=== PATIENT | male | born 1935 | race Hispanic/Latino ===

== ENCOUNTER 2018-01-12 11:15 | Inpatient (IN) | payer OTHER ==
[~2018-01-12] VITALS: Ht 167.6 cm; Wt 82.6 kg
[2018-01-12] MEDS ORDERED: ASPIRIN 325 MG TABLET ONE (11:48)
[2018-01-12 12:04] LABS: BASOPHILS % (AUTO) 0.4 % (0.0-5.0); EOSINOPHILS % (AUTO) 2.6 % (0.0-8.0); LYMPHOCYTES % (AUTO) 14.5 % (21.0-51.0); MEAN CORPUSCULAR HEMOGLOBIN 27.1 pg (27.0-33.0); MEAN CORPUSCULAR HGB CONC 32.9 g/dL (32.0-36.0); MEAN CORPUSCULAR VOLUME 82.3 fL (79-99); MONOCYTES % (AUTO) 7.6 % (3.0-13.0); NEUTROPHILS % (AUTO) 74.9 % (40.0-77.0); PLATELET COUNT (AUTO) 457 K/uL (130-400); RED BLOOD CELL COUNT(AUTO) 4.25 MIL/uL (4.50-6.20); RED CELL DISTRIBUTION WIDTH 14.6 % (11.0-15.5)
[2018-01-12 12:14] LABS: CREATININE 1.5 mg/dL (0.5-1.5); POTASSIUM 4.3 mmol/L (3.5-5.1)
[2018-01-12 12:20] LABS: ALBUMIN 2.6 g/dL (3.5-5.0); BILIRUBIN,TOTAL 0.5 mg/dL (0.2-1.0); TOTAL PROTEIN, SERUM 7.6 g/dL (6.0-8.3)
[2018-01-12 12:22] LABS: INR 0.99 (0.85-1.15); PARTIAL THROMBOPLASTIN TIME 27.5 SEC (26.3-35.5); PROTHROMBIN TIME 10.4 SEC (9.6-11.6)
[2018-01-12 12:38] LABS: B-TYPE NATRIURETIC PEPTIDE 55 pg/mL (0-100)
[2018-01-12 14:46] LABS: ABG BASE EXCESS -1.2 mmol/L (-2.0-3.0); ABG HCO3 22.4 mmol/L (21.0-28.0); ABG OXYGEN SATURATION 93.7 % (95.0-99.0); ABG PCO2 35 mmHg (35-48)
[2018-01-12] MEDS ORDERED: LIDOCAINE HCL 2% VISCOUS 15 ML UDCUP ONE (15:04)
[2018-01-12] MEDS ORDERED: MAG HYDROX/AL HYDROX/SIMETH ES 30 ML SUSP UDCUP ONE (15:05)
[2018-01-12 15:59] VITALS: BP 146/75
[2018-01-12 16:55] LABS: CREATINE KINASE MB 0.9 ng/mL (0.5-3.6); CREATINE KINASE, TOTAL 45 U/L (21-232); MYOGLOBIN 99 ng/mL (10-92); TROPONIN I < 0.04 ng/mL (0.00-0.06)
[2018-01-12] MEDS ORDERED: EZET10TA26 PO (18:40)
[2018-01-12] MEDS ORDERED: AEC81 PO (18:40)
[2018-01-12] MEDS ORDERED: HYDR12.54 PO (18:40)
[2018-01-12] MEDS ORDERED: SIMV40TA59 PO (18:40)
[2018-01-12] MEDS ORDERED: SAW450CA7 PO (18:40)
[2018-01-12] MEDS ORDERED: IRBE300T19 PO (18:40)
[2018-01-12] MEDS ORDERED: LABE200T5 PO (18:40)
[2018-01-12 19:38] VITALS: BP 182/97
[2018-01-12] MEDS ORDERED: COMPOUND PO MISCELLANEOUS 1 EACH MISC MISC PRN (20:00)
[2018-01-12] MEDS ORDERED: LIDOCAINE HCL 2% VISCOUS 60 ML, MAG HYDROX/AL HYDROX/SIMETH 60 ML, DICYCLOMINE HCL 40 MG PO PRN ×3 (20:00)
[2018-01-12 21:43] VITALS: BP 162/89
[2018-01-12 22:50] LABS: CREATINE KINASE MB 0.9 ng/mL (0.5-3.6); CREATINE KINASE, TOTAL 35 U/L (21-232); MYOGLOBIN 64 ng/mL (10-92); TROPONIN I < 0.04 ng/mL (0.00-0.06)
[2018-01-13] VITALS (7 sets, daily range): BP systolic 122–141; BP diastolic 62–76
[2018-01-13 05:24] LABS: CREATINE KINASE MB 0.6 ng/mL (0.5-3.6); CREATINE KINASE, TOTAL 31 U/L (21-232); MYOGLOBIN 67 ng/mL (10-92); TROPONIN I < 0.04 ng/mL (0.00-0.06)
[2018-01-13] MEDS: HYDROCHLOROTHIAZIDE 25 MG TABLET PO SCH (08:42)
[2018-01-13] MEDS: ASPIRIN 81 MG EC TAB PO SCH (08:43)
[2018-01-13] MEDS: LABETALOL HCL 200 MG TABLET PO SCH (08:43)
[2018-01-13] MEDS: SAW PALMETTO FRUIT 450 MG PO SCH (08:44)
[2018-01-13] MEDS: PANTOPRAZOLE SODIUM 40 MG TABLET.DR PO SCH (08:44)
[2018-01-13] MEDS: LOSARTAN 100 MG TABLET PO SCH (08:44)
[2018-01-13] MEDS: ACETAMINOPHEN 325 MG TAB PO PRN ×2 (12:55→21:00)
[2018-01-13] MEDS: EZETIMIBE 10 MG TAB PO SCH (20:59)
[2018-01-13] MEDS: ATORVASTATIN CALCIUM 20 MG TABLET PO SCH (20:59)
[2018-01-14 03:49] VITALS: BP 133/74
[2018-01-14 05:18] LABS: BASOPHILS % (AUTO) 0.3 % (0.0-5.0); EOSINOPHILS % (AUTO) 2.4 % (0.0-8.0); LYMPHOCYTES % (AUTO) 13.4 % (21.0-51.0); MEAN CORPUSCULAR HEMOGLOBIN 27.6 pg (27.0-33.0); MONOCYTES % (AUTO) 7.5 % (3.0-13.0); NEUTROPHILS % (AUTO) 76.4 % (40.0-77.0); PLATELET COUNT (AUTO) 477 K/uL (130-400); RED BLOOD CELL COUNT(AUTO) 4.19 MIL/uL (4.50-6.20); RED CELL DISTRIBUTION WIDTH 14.5 % (11.0-15.5); WHITE BLOOD COUNT (AUTO) 13.6 K/uL (4.8-10.8)
[2018-01-14 05:21] LABS: CREATININE 1.3 mg/dL (0.5-1.5); POTASSIUM 3.9 mmol/L (3.5-5.1)
[2018-01-14 07:00] VITALS: BP 146/70
[2018-01-14] MEDS: HYDROCHLOROTHIAZIDE 25 MG TABLET PO SCH (08:28)
[2018-01-14] MEDS: LABETALOL HCL 200 MG TABLET PO SCH (08:29)
[2018-01-14] MEDS: SAW PALMETTO FRUIT 450 MG PO SCH (08:33)
[2018-01-14] MEDS: PANTOPRAZOLE SODIUM 40 MG TABLET.DR PO SCH (08:33)
[2018-01-14] MEDS: ASPIRIN 81 MG EC TAB PO SCH (08:33)
[2018-01-14] MEDS: LOSARTAN 100 MG TABLET PO SCH (08:34)
[2018-01-14] MEDS: LEVOFLOXACIN 750 MG/D5W 150 ML 150 ML IV SCH (11:59)
[2018-01-14 12:00] VITALS: BP 97/53
[2018-01-14] MEDS ORDERED: PHARMACY COMMUNICATION MISC SCH (15:30)
[2018-01-14 16:12] VITALS: BP 106/65
[2018-01-14] MEDS ORDERED: VANCOMYCIN 1GM+NS 250ML 250 ML IV SCH (16:30)
[2018-01-14] MEDS: IPRATROPIUM/ALBUTEROL SULFATE 3 ML SOLUTION IH SCH ×2 (18:15→23:18)
[2018-01-14 19:30] VITALS: BP 149/77
[2018-01-14] MEDS: EZETIMIBE 10 MG TAB PO SCH (22:31)
[2018-01-14] MEDS: ZOSYN 3.375GM+NS 50ML 50 ML IV SCH (22:31)
[2018-01-14] MEDS: ATORVASTATIN CALCIUM 20 MG TABLET PO SCH (22:31)
[2018-01-14] MEDS: ACETAMINOPHEN 325 MG TAB PO PRN (22:35)
[2018-01-14 23:47] VITALS: BP 138/66
[2018-01-15] VITALS (22 sets, daily range): BP systolic 80–172; BP diastolic 46–87
[2018-01-15 06:10] LABS: MEAN CORPUSCULAR HGB CONC 33.2 g/dL (32.0-36.0); MEAN CORPUSCULAR VOLUME 81.2 fL (79-99); PLATELET COUNT (AUTO) 494 K/uL (130-400); RED BLOOD CELL COUNT(AUTO) 4.19 MIL/uL (4.50-6.20); RED CELL DISTRIBUTION WIDTH 14.2 % (11.0-15.5); WHITE BLOOD COUNT (AUTO) 14.4 K/uL (4.8-10.8)
[2018-01-15 06:20] LABS: PARTIAL THROMBOPLASTIN TIME 27.6 SEC (26.3-35.5); PROTHROMBIN TIME 10.5 SEC (9.6-11.6)
[2018-01-15 06:26] LABS: CREATININE 1.3 mg/dL (0.5-1.5); MAGNESIUM 1.7 mg/dL (1.80-2.40)
[2018-01-15] MEDS: IPRATROPIUM/ALBUTEROL SULFATE 3 ML SOLUTION IH SCH ×3 (06:31→18:11)
[2018-01-15] MEDS: SAW PALMETTO FRUIT 450 MG PO SCH (09:00)
[2018-01-15] MEDS: LOSARTAN 100 MG TABLET PO SCH (09:00)
[2018-01-15] MEDS: ASPIRIN 81 MG EC TAB PO SCH (09:00)
[2018-01-15] MEDS: LABETALOL HCL 200 MG TABLET PO SCH (09:00)
[2018-01-15] MEDS: PANTOPRAZOLE SODIUM 40 MG TABLET.DR PO SCH (09:00)
[2018-01-15] MEDS: ZOSYN 3.375GM+NS 50ML 50 ML IV SCH ×2 (09:06→21:07)
[2018-01-15] MEDS: VANCOMYCIN 500MG+NS 100ML 100 ML IV SCH ×2 (09:12→21:05)
[2018-01-15] MEDS ORDERED: MEPERIDINE-PF 50 MG/ML SYG ONE (12:19)
[2018-01-15] MEDS ORDERED: MIDAZOLAM HCL 1 MG/ML 2ML VIAL ONE (12:20)
[2018-01-15] MEDS ORDERED: LIDOCAINE HCL 2% 20ML ONE (12:27)
[2018-01-15] MEDS ORDERED: EPINEPHRINE 1 MG/ML AMPULE ONE (12:35)
[2018-01-15] MEDS ORDERED: MAGNESIUM 2GM PREMIX 50ML 50 ML IV SCH (13:45)
[2018-01-15] MEDS: ATORVASTATIN CALCIUM 20 MG TABLET PO SCH (21:05)
[2018-01-15] MEDS: EZETIMIBE 10 MG TAB PO SCH (21:05)
[2018-01-15] MEDS: ACETAMINOPHEN 325 MG TAB PO PRN (21:22)
[2018-01-16 00:35] VITALS: BP 119/60
[2018-01-16] MEDS: IPRATROPIUM/ALBUTEROL SULFATE 3 ML SOLUTION IH SCH ×4 (00:48→18:15)
[2018-01-16 03:51] LABS: SPECIMENTYPE,BODY FLUID LAVAGE
[2018-01-16 03:52] LABS: APPEARANCE BODY FLUID SLIGHTLY CLOUDY (CLEAR); COLOR,BODY FLUID COLORLESS (LT YELLOW); TOTAL VOLUME,BODY FLUID 30 mL
[2018-01-16 03:53] LABS: BODY FLUID RBC 10 /cu. mm.; BODY FLUID WBC 22 /cu. mm.
[2018-01-16 03:54] LABS: BF OTHER CELLS 98
[2018-01-16 04:17] VITALS: BP 138/73
[2018-01-16 05:04] LABS: HEMATOCRIT 32.4 % (42-54); MEAN CORPUSCULAR HEMOGLOBIN 27.7 pg (27.0-33.0); MEAN CORPUSCULAR HGB CONC 34.3 g/dL (32.0-36.0); MEAN CORPUSCULAR VOLUME 80.9 fL (79-99); PLATELET COUNT (AUTO) 470 K/uL (130-400); RED CELL DISTRIBUTION WIDTH 14.4 % (11.0-15.5); WHITE BLOOD COUNT (AUTO) 14.8 K/uL (4.8-10.8)
[2018-01-16 05:13] LABS: CREATININE 1.3 mg/dL (0.5-1.5); MAGNESIUM 1.8 mg/dL (1.80-2.40); POTASSIUM 3.8 mmol/L (3.5-5.1)
[2018-01-16 08:11] VITALS: BP 140/74
[2018-01-16] MEDS: ZOSYN 3.375GM+NS 50ML 50 ML IV SCH ×2 (09:50→21:16)
[2018-01-16] MEDS: VANCOMYCIN 500MG+NS 100ML 100 ML IV SCH ×2 (09:50→22:05)
[2018-01-16] MEDS: LOSARTAN 100 MG TABLET PO SCH (09:51)
[2018-01-16] MEDS: SAW PALMETTO FRUIT 450 MG PO SCH (09:51)
[2018-01-16] MEDS: PANTOPRAZOLE SODIUM 40 MG TABLET.DR PO SCH (09:51)
[2018-01-16] MEDS: LABETALOL HCL 200 MG TABLET PO SCH (09:51)
[2018-01-16] MEDS: ASPIRIN 81 MG EC TAB PO SCH (09:51)
[2018-01-16 12:00] VITALS: BP 118/58
[2018-01-16] MEDS: LEVOFLOXACIN 750 MG/D5W 150 ML 150 ML IV SCH (12:39)
[2018-01-16 16:00] VITALS: BP 119/64
[2018-01-16 19:00] VITALS: BP 123/70
[2018-01-16] MEDS: ATORVASTATIN CALCIUM 20 MG TABLET PO SCH (21:16)
[2018-01-16] MEDS: EZETIMIBE 10 MG TAB PO SCH (21:16)
[2018-01-16] MEDS: ACETAMINOPHEN 325 MG TAB PO PRN (22:13)
[2018-01-17] VITALS: BP 121/61
[2018-01-17] MEDS: IPRATROPIUM/ALBUTEROL SULFATE 3 ML SOLUTION IH SCH ×5 (00:40→23:38)
[2018-01-17 04:00] VITALS: BP 122/59
[2018-01-17] MEDS ORDERED: VANCOMYCIN 1.75 GM in SODIUM CHLORIDE 0.9% 250 ML IV SCH (06:53)
[2018-01-17 08:00] VITALS: BP 148/67
[2018-01-17] MEDS: SAW PALMETTO FRUIT 450 MG PO SCH (09:00)
[2018-01-17] MEDS: ASPIRIN 81 MG EC TAB PO SCH (10:07)
[2018-01-17] MEDS: LOSARTAN 100 MG TABLET PO SCH (10:07)
[2018-01-17] MEDS: PANTOPRAZOLE SODIUM 40 MG TABLET.DR PO SCH (10:07)
[2018-01-17] MEDS: LABETALOL HCL 200 MG TABLET PO SCH (10:10)
[2018-01-17] MEDS: ZOSYN 3.375GM+NS 50ML 50 ML IV SCH ×2 (11:50→20:23)
[2018-01-17 16:00] VITALS: BP 120/59
[2018-01-17 19:00] VITALS: BP 130/67
[2018-01-17] MEDS: ATORVASTATIN CALCIUM 20 MG TABLET PO SCH (20:23)
[2018-01-17] MEDS: EZETIMIBE 10 MG TAB PO SCH (20:23)
[2018-01-17] MEDS: ACETAMINOPHEN 325 MG TAB PO PRN (20:37)
[2018-01-17] MEDS: VANCOMYCIN 500MG+NS 100ML 100 ML IV SCH (23:05)
[2018-01-18] VITALS: BP 134/66
[2018-01-18 04:00] VITALS: BP 147/77
[2018-01-18 05:57] LABS: HEMATOCRIT 31.5 % (42-54); MEAN CORPUSCULAR HEMOGLOBIN 27.8 pg (27.0-33.0); MEAN CORPUSCULAR HGB CONC 34.1 g/dL (32.0-36.0); MEAN CORPUSCULAR VOLUME 81.4 fL (79-99); PLATELET COUNT (AUTO) 446 K/uL (130-400); RED BLOOD CELL COUNT(AUTO) 3.87 MIL/uL (4.50-6.20); RED CELL DISTRIBUTION WIDTH 14.3 % (11.0-15.5); WHITE BLOOD COUNT (AUTO) 12.2 K/uL (4.8-10.8)
[2018-01-18 06:14] LABS: CREATININE 1.2 mg/dL (0.5-1.5); POTASSIUM 3.8 mmol/L (3.5-5.1)
[2018-01-18] MEDS: VANCOMYCIN 500MG+NS 100ML 100 ML IV SCH ×3 (06:16→22:46)
[2018-01-18] MEDS: IPRATROPIUM/ALBUTEROL SULFATE 3 ML SOLUTION IH SCH ×3 (06:35→19:40)
[2018-01-18 07:43] LABS: BASOPHILS % (MANUAL) 1 % (0-2); EOSINOPHILS % (MANUAL) 3 % (1-6); LYMPHOCYTES % (MANUAL) 11 % (22-44); MAN.DIFF COMMENT-IMPRESSION MANUAL DIFFERENTIAL; MONOCYTES % (MANUAL) 4 % (2-9); PLATELET MORPHOLOGY COMMENT SLIGHT INCREASED; SEGMENTED NEUTROPHILS % 81 % (40-70)
[2018-01-18 08:00] VITALS: BP 154/76
[2018-01-18] MEDS: LABETALOL HCL 200 MG TABLET PO SCH (08:32)
[2018-01-18] MEDS: PANTOPRAZOLE SODIUM 40 MG TABLET.DR PO SCH (08:32)
[2018-01-18] MEDS: ZOSYN 3.375GM+NS 50ML 50 ML IV SCH ×3 (08:32→22:38)
[2018-01-18] MEDS: LOSARTAN 100 MG TABLET PO SCH (08:32)
[2018-01-18] MEDS: ASPIRIN 81 MG EC TAB PO SCH (08:32)
[2018-01-18] MEDS: SAW PALMETTO FRUIT 450 MG PO SCH (08:33)
[2018-01-18 11:31] VITALS: BP 153/77
[2018-01-18] MEDS: LEVOFLOXACIN 750 MG/D5W 150 ML 150 ML IV SCH (11:50)
[2018-01-18 16:00] VITALS: BP 154/79
[2018-01-18 20:00] VITALS: BP_SYST 135; BP_SYST 136; BP_DIAS 66; BP_DIAS 70
[2018-01-18] MEDS: ATORVASTATIN CALCIUM 20 MG TABLET PO SCH (20:43)
[2018-01-18] MEDS: EZETIMIBE 10 MG TAB PO SCH (20:43)
[2018-01-19] VITALS: BP 160/68
[2018-01-19] MEDS: IPRATROPIUM/ALBUTEROL SULFATE 3 ML SOLUTION IH SCH ×5 (00:09→23:45)
[2018-01-19 04:00] VITALS: BP 157/84
[2018-01-19] MEDS: VANCOMYCIN 500MG+NS 100ML 100 ML IV SCH ×2 (06:44→17:40)
[2018-01-19 07:00] VITALS: BP 129/71
[2018-01-19] MEDS: PANTOPRAZOLE SODIUM 40 MG TABLET.DR PO SCH (07:58)
[2018-01-19] MEDS: LABETALOL HCL 200 MG TABLET PO SCH (07:58)
[2018-01-19] MEDS: ASPIRIN 81 MG EC TAB PO SCH (07:58)
[2018-01-19] MEDS: LOSARTAN 100 MG TABLET PO SCH (07:59)
[2018-01-19] MEDS: ZOSYN 3.375GM+NS 50ML 50 ML IV SCH (09:00)
[2018-01-19] MEDS: SAW PALMETTO FRUIT 450 MG PO SCH (09:00)
[2018-01-19 11:00] VITALS: BP 119/53
[2018-01-19 16:00] VITALS: BP 135/68
[2018-01-19 20:00] VITALS: BP 159/84
[2018-01-19] MEDS ORDERED: ZOSYN 3.375GM+NS 50ML 50 ML IV ONE (21:00)
[2018-01-19] MEDS: EZETIMIBE 10 MG TAB PO SCH (21:35)
[2018-01-19] MEDS: ATORVASTATIN CALCIUM 20 MG TABLET PO SCH (21:36)
[2018-01-19] MEDS: ACETAMINOPHEN 325 MG TAB PO PRN (21:37)
[2018-01-20] VITALS: BP 157/73
[2018-01-20 03:25] VITALS: BP 158/77
[2018-01-20 05:43] LABS: HEMATOCRIT 31.5 % (42-54); MEAN CORPUSCULAR HEMOGLOBIN 27.6 pg (27.0-33.0); MEAN CORPUSCULAR HGB CONC 33.8 g/dL (32.0-36.0); MEAN CORPUSCULAR VOLUME 81.7 fL (79-99); PLATELET COUNT (AUTO) 456 K/uL (130-400); RED BLOOD CELL COUNT(AUTO) 3.85 MIL/uL (4.50-6.20); RED CELL DISTRIBUTION WIDTH 14.2 % (11.0-15.5)
[2018-01-20 06:03] LABS: INR 0.97 (0.85-1.15); PARTIAL THROMBOPLASTIN TIME 26.8 SEC (26.3-35.5); PROTHROMBIN TIME 10.2 SEC (9.6-11.6)
[2018-01-20 06:10] LABS: CREATININE 1.2 mg/dL (0.5-1.5); POTASSIUM 3.7 mmol/L (3.5-5.1)
[2018-01-20] MEDS: IPRATROPIUM/ALBUTEROL SULFATE 3 ML SOLUTION IH SCH ×4 (06:36→23:25)
[2018-01-20 08:20] VITALS: BP 160/74
[2018-01-20 11:38] VITALS: BP 172/91
[2018-01-20] MEDS: ZOSYN 3.375GM+NS 50ML 50 ML IV SCH ×2 (11:45→21:52)
[2018-01-20] MEDS ORDERED: IOPAMIDOL-370 75 ML VIAL IV ONE (12:48)
[2018-01-20 16:00] VITALS: BP 156/65
[2018-01-20] MEDS: LOSARTAN 100 MG TABLET PO SCH (17:39)
[2018-01-20] MEDS: ASPIRIN 81 MG EC TAB PO SCH (17:39)
[2018-01-20] MEDS: LABETALOL HCL 200 MG TABLET PO SCH (17:39)
[2018-01-20] MEDS: SAW PALMETTO FRUIT 450 MG PO SCH (17:40)
[2018-01-20] MEDS: PANTOPRAZOLE SODIUM 40 MG TABLET.DR PO SCH (17:40)
[2018-01-20] MEDS: ENOXAPARIN SODIUM 40 MG/0.4 ML SYRINGE SQ SCH (17:41)
[2018-01-20] MEDS: ACETAMINOPHEN 325 MG TAB PO PRN (17:47)
[2018-01-20 21:07] VITALS: BP 102/52
[2018-01-20] MEDS: EZETIMIBE 10 MG TAB PO SCH (21:52)
[2018-01-20] MEDS: ATORVASTATIN CALCIUM 20 MG TABLET PO SCH (21:52)
[2018-01-21] VITALS (13 sets, daily range): BP systolic 113–163; BP diastolic 59–83
[2018-01-21] MEDS: IPRATROPIUM/ALBUTEROL SULFATE 3 ML SOLUTION IH SCH ×4 (06:37→23:21)
[2018-01-21] MEDS: ZOSYN 3.375GM+NS 50ML 50 ML IV SCH ×2 (10:01→21:01)
[2018-01-21] MEDS ORDERED: LIDOCAINE HCL 2% 20ML ONE (11:50)
[2018-01-21] MEDS ORDERED: LIDOCAINE HCL 1% 10 ML VIAL ONE (13:00)
[2018-01-21] MEDS ORDERED: VANCOMYCIN PROTOCOL PER PHARMACY IV SCH (13:30)
[2018-01-21] MEDS: ASPIRIN 81 MG EC TAB PO SCH (14:51)
[2018-01-21] MEDS: LABETALOL HCL 200 MG TABLET PO SCH (14:51)
[2018-01-21] MEDS: LEVOFLOXACIN 500 MG/D5W 100 ML 100 ML IV SCH (14:51)
[2018-01-21] MEDS: PANTOPRAZOLE SODIUM 40 MG TABLET.DR PO SCH (14:51)
[2018-01-21] MEDS: LOSARTAN 100 MG TABLET PO SCH (14:52)
[2018-01-21] MEDS: ENOXAPARIN SODIUM 40 MG/0.4 ML SYRINGE SQ SCH (14:53)
[2018-01-21] MEDS: SAW PALMETTO FRUIT 450 MG PO SCH (15:00)
[2018-01-21] MEDS: VANCOMYCIN 1GM+NS 250ML 250 ML IV SCH (16:29)
[2018-01-21] MEDS: EZETIMIBE 10 MG TAB PO SCH (21:01)
[2018-01-21] MEDS: ATORVASTATIN CALCIUM 20 MG TABLET PO SCH (21:01)
[2018-01-21] MEDS: ACETAMINOPHEN 325 MG TAB PO PRN (23:59)
[2018-01-22] VITALS (7 sets, daily range): BP systolic 127–161; BP diastolic 64–85
[2018-01-22] MEDS: IPRATROPIUM/ALBUTEROL SULFATE 3 ML SOLUTION IH SCH ×3 (06:37→18:50)
[2018-01-22] MEDS: SAW PALMETTO FRUIT 450 MG PO SCH (09:00)
[2018-01-22] MEDS: ENOXAPARIN SODIUM 40 MG/0.4 ML SYRINGE SQ SCH (11:54)
[2018-01-22] MEDS: LABETALOL HCL 200 MG TABLET PO SCH (11:54)
[2018-01-22] MEDS: LOSARTAN 100 MG TABLET PO SCH (11:54)
[2018-01-22] MEDS: PANTOPRAZOLE SODIUM 40 MG TABLET.DR PO SCH (11:55)
[2018-01-22] MEDS: ZOSYN 3.375GM+NS 50ML 50 ML IV SCH ×2 (11:55→21:00)
[2018-01-22] MEDS: ASPIRIN 81 MG EC TAB PO SCH (11:55)
[2018-01-22] MEDS: LEVOFLOXACIN 500 MG/D5W 100 ML 100 ML IV SCH (16:27)
[2018-01-22] MEDS: VANCOMYCIN 1GM+NS 250ML 250 ML IV SCH (16:27)
[2018-01-22 17:44] LABS: HEMATOCRIT 30.6 % (42-54); MEAN CORPUSCULAR HEMOGLOBIN 27.3 pg (27.0-33.0); MEAN CORPUSCULAR HGB CONC 33.5 g/dL (32.0-36.0); MEAN CORPUSCULAR VOLUME 81.6 fL (79-99); PLATELET COUNT (AUTO) 435 K/uL (130-400); RED BLOOD CELL COUNT(AUTO) 3.74 MIL/uL (4.50-6.20); RED CELL DISTRIBUTION WIDTH 14.3 % (11.0-15.5); WHITE BLOOD COUNT (AUTO) 10.2 K/uL (4.8-10.8)
[2018-01-22] MEDS: ATORVASTATIN CALCIUM 20 MG TABLET PO SCH (20:54)
[2018-01-22] MEDS: EZETIMIBE 10 MG TAB PO SCH (20:54)
[2018-01-22] MEDS: ACETAMINOPHEN 325 MG TAB PO PRN (20:55)
[2018-01-23] MEDS: IPRATROPIUM/ALBUTEROL SULFATE 3 ML SOLUTION IH SCH ×4 (00:36→17:40)
[2018-01-23 03:55] VITALS: BP 148/76
[2018-01-23 05:40] LABS: CREATININE 1.1 mg/dL (0.5-1.5); POTASSIUM 3.4 mmol/L (3.5-5.1)
[2018-01-23 08:04] VITALS: BP 153/78
[2018-01-23] MEDS: SAW PALMETTO FRUIT 450 MG PO SCH (09:00)
[2018-01-23] MEDS: LOSARTAN 100 MG TABLET PO SCH (09:33)
[2018-01-23] MEDS: LABETALOL HCL 200 MG TABLET PO SCH (09:33)
[2018-01-23] MEDS: PANTOPRAZOLE SODIUM 40 MG TABLET.DR PO SCH (09:33)
[2018-01-23] MEDS: ZOSYN 3.375GM+NS 50ML 50 ML IV SCH ×2 (09:33→20:39)
[2018-01-23] MEDS: ASPIRIN 81 MG EC TAB PO SCH (09:33)
[2018-01-23] MEDS: ENOXAPARIN SODIUM 40 MG/0.4 ML SYRINGE SQ SCH (09:34)
[2018-01-23 11:45] VITALS: BP 159/74
[2018-01-23] MEDS: LEVOFLOXACIN 500 MG/D5W 100 ML 100 ML IV SCH (13:51)
[2018-01-23] MEDS: VANCOMYCIN 1GM+NS 250ML 250 ML IV SCH (13:51)
[2018-01-23 16:49] VITALS: BP 170/78
[2018-01-23 19:49] VITALS: BP 133/71
[2018-01-23] MEDS: ATORVASTATIN CALCIUM 20 MG TABLET PO SCH (20:37)
[2018-01-23] MEDS: EZETIMIBE 10 MG TAB PO SCH (20:38)
[2018-01-23] MEDS: ACETAMINOPHEN 325 MG TAB PO PRN (20:39)
[2018-01-24] VITALS (7 sets, daily range): BP systolic 130–177; BP diastolic 59–91
[2018-01-24] MEDS: IPRATROPIUM/ALBUTEROL SULFATE 3 ML SOLUTION IH SCH ×5 (00:18→23:27)
[2018-01-24 05:19] LABS: BASOPHILS % (AUTO) 0.6 % (0.0-5.0); EOSINOPHILS % (AUTO) 4.4 % (0.0-8.0); HEMATOCRIT 30.4 % (42-54); LYMPHOCYTES % (AUTO) 19.1 % (21.0-51.0); MEAN CORPUSCULAR HEMOGLOBIN 28.1 pg (27.0-33.0); MEAN CORPUSCULAR HGB CONC 34.4 g/dL (32.0-36.0); MEAN CORPUSCULAR VOLUME 81.5 fL (79-99); MONOCYTES % (AUTO) 9.3 % (3.0-13.0); NEUTROPHILS % (AUTO) 66.6 % (40.0-77.0); PLATELET COUNT (AUTO) 479 K/uL (130-400); RED BLOOD CELL COUNT(AUTO) 3.73 MIL/uL (4.50-6.20); WHITE BLOOD COUNT (AUTO) 8.9 K/uL (4.8-10.8)
[2018-01-24 05:33] LABS: CREATININE 1.2 mg/dL (0.5-1.5); MAGNESIUM 1.7 mg/dL (1.80-2.40); PHOSPHORUS 2.9 mg/dL (2.5-4.9); POTASSIUM 3.6 mmol/L (3.5-5.1)
[2018-01-24] MEDS: SAW PALMETTO FRUIT 450 MG PO SCH (09:00)
[2018-01-24] MEDS: LABETALOL HCL 200 MG TABLET PO SCH (10:14)
[2018-01-24] MEDS: ASPIRIN 81 MG EC TAB PO SCH (10:14)
[2018-01-24] MEDS: LOSARTAN 100 MG TABLET PO SCH (10:15)
[2018-01-24] MEDS: ENOXAPARIN SODIUM 40 MG/0.4 ML SYRINGE SQ SCH (10:16)
[2018-01-24] MEDS: PANTOPRAZOLE SODIUM 40 MG TABLET.DR PO SCH (10:16)
[2018-01-24] MEDS: ZOSYN 3.375GM+NS 50ML 50 ML IV SCH ×2 (10:26→22:48)
[2018-01-24] MEDS: ACETAMINOPHEN 325 MG TAB PO PRN ×2 (10:27→21:18)
[2018-01-24] MEDS: LEVOFLOXACIN 500 MG/D5W 100 ML 100 ML IV SCH (13:32)
[2018-01-24] MEDS ORDERED: COMPOUND IV REFRIGERATED 1 EACH IVSOLN MISC PRN (16:45)
[2018-01-24] MEDS: VANCOMYCIN 1.25 GM in SODIUM CHLORIDE 0.9% 250 ML IV SCH (17:43)
[2018-01-24] MEDS ORDERED: SODIUM CHLORIDE 0.9% 500ML 500 ML IV ONE (21:01)
[2018-01-24] MEDS ORDERED: MAGNESIUM 2GM PREMIX 50ML 50 ML IV SCH (21:15)
[2018-01-24] MEDS: EZETIMIBE 10 MG TAB PO SCH (21:18)
[2018-01-24] MEDS: ATORVASTATIN CALCIUM 20 MG TABLET PO SCH (21:18)
[2018-01-24] MEDS ORDERED: POTASSIUM CHLORIDE 20 MEQ ERTAB PO ONE (21:31)
[2018-01-24] MEDS ORDERED: POTASSIUM CHLORIDE 20MEQ/100ML 100 ML IV PRN (21:45)
[2018-01-24] MEDS ORDERED: LIDOCAINE HCL-MPF 1% 2ML VIAL IVP PRN (21:45)
[2018-01-24] MEDS ORDERED: POTASSIUM CHLORIDE 20 MEQ ERTAB PO PRN (21:45)
[2018-01-24] MEDS ORDERED: POTASSIUM CHLORIDE 10% ELIXIR 20 MEQ/15 ML UDCUP PO PRN (21:45)
[2018-01-25 04:35] VITALS: BP 148/80
[2018-01-25 05:56] LABS: BASOPHILS % (AUTO) 0.7 % (0.0-5.0); EOSINOPHILS % (AUTO) 3.8 % (0.0-8.0); HEMATOCRIT 31.1 % (42-54); LYMPHOCYTES % (AUTO) 14.7 % (21.0-51.0); MEAN CORPUSCULAR HEMOGLOBIN 27.5 pg (27.0-33.0); MONOCYTES % (AUTO) 8.4 % (3.0-13.0); NEUTROPHILS % (AUTO) 72.4 % (40.0-77.0); PLATELET COUNT (AUTO) 476 K/uL (130-400); RED BLOOD CELL COUNT(AUTO) 3.84 MIL/uL (4.50-6.20); RED CELL DISTRIBUTION WIDTH 14.6 % (11.0-15.5)
[2018-01-25 06:15] LABS: ALBUMIN 2.3 g/dL (3.5-5.0); BILIRUBIN,TOTAL 0.4 mg/dL (0.2-1.0); CREATININE 1.2 mg/dL (0.5-1.5); MAGNESIUM 2.1 mg/dL (1.80-2.40); PHOSPHORUS 2.9 mg/dL (2.5-4.9); TOTAL PROTEIN, SERUM 6.7 g/dL (6.0-8.3)
[2018-01-25] MEDS: IPRATROPIUM/ALBUTEROL SULFATE 3 ML SOLUTION IH SCH ×3 (06:22→18:25)
[2018-01-25 07:51] LABS: ABG BASE EXCESS 2.6 mmol/L (-2.0-3.0); ABG HCO3 25.5 mmol/L (21.0-28.0); ABG PCO2 34 mmHg (35-48)
[2018-01-25 08:00] VITALS: BP 142/88
[2018-01-25] MEDS: SAW PALMETTO FRUIT 450 MG PO SCH (09:00)
[2018-01-25] MEDS: LOSARTAN 100 MG TABLET PO SCH (10:10)
[2018-01-25] MEDS: ASPIRIN 81 MG EC TAB PO SCH (10:10)
[2018-01-25] MEDS: ZOSYN 3.375GM+NS 50ML 50 ML IV SCH ×2 (10:10→22:01)
[2018-01-25] MEDS: LABETALOL HCL 200 MG TABLET PO SCH (10:10)
[2018-01-25] MEDS: PANTOPRAZOLE SODIUM 40 MG TABLET.DR PO SCH (10:10)
[2018-01-25] MEDS: ENOXAPARIN SODIUM 40 MG/0.4 ML SYRINGE SQ SCH (10:12)
[2018-01-25 12:00] VITALS: BP 169/86
[2018-01-25] MEDS: LEVOFLOXACIN 500 MG/D5W 100 ML 100 ML IV SCH (13:53)
[2018-01-25 16:00] VITALS: BP 131/70
[2018-01-25] MEDS: VANCOMYCIN 1.25 GM in SODIUM CHLORIDE 0.9% 250 ML IV SCH (16:32)
[2018-01-25 20:03] VITALS: BP 163/78
[2018-01-25] MEDS: ATORVASTATIN CALCIUM 20 MG TABLET PO SCH (22:01)
[2018-01-25] MEDS: ACETAMINOPHEN 325 MG TAB PO PRN (22:01)
[2018-01-25] MEDS: EZETIMIBE 10 MG TAB PO SCH (22:01)
[2018-01-26 00:09] VITALS: BP 167/86
[2018-01-26] MEDS: IPRATROPIUM/ALBUTEROL SULFATE 3 ML SOLUTION IH SCH ×5 (00:12→23:07)
[2018-01-26 04:09] VITALS: BP 148/70
[2018-01-26 08:00] VITALS: BP 136/69
[2018-01-26] MEDS: ENOXAPARIN SODIUM 40 MG/0.4 ML SYRINGE SQ SCH (09:00)
[2018-01-26] MEDS: LABETALOL HCL 200 MG TABLET PO SCH (09:58)
[2018-01-26] MEDS: LOSARTAN 100 MG TABLET PO SCH (09:58)
[2018-01-26] MEDS: ASPIRIN 81 MG EC TAB PO SCH (09:58)
[2018-01-26] MEDS: PANTOPRAZOLE SODIUM 40 MG TABLET.DR PO SCH (09:58)
[2018-01-26] MEDS: ZOSYN 3.375GM+NS 50ML 50 ML IV SCH ×2 (10:05→20:50)
[2018-01-26 11:52] VITALS: BP 173/85
[2018-01-26] MEDS: SAW PALMETTO FRUIT 450 MG PO SCH (12:59)
[2018-01-26] MEDS: LEVOFLOXACIN 500 MG/D5W 100 ML 100 ML IV SCH (14:00)
[2018-01-26] MEDS: VANCOMYCIN 1.25 GM in SODIUM CHLORIDE 0.9% 250 ML IV SCH (17:21)
[2018-01-26 19:00] VITALS: BP 151/78
[2018-01-26] MEDS: EZETIMIBE 10 MG TAB PO SCH (20:50)
[2018-01-26] MEDS: ATORVASTATIN CALCIUM 20 MG TABLET PO SCH (20:51)
[2018-01-26] MEDS: ACETAMINOPHEN 325 MG TAB PO PRN (20:54)
[2018-01-26 23:00] VITALS: BP 122/51
[2018-01-27] VITALS (7 sets, daily range): BP systolic 132–192; BP diastolic 59–88
[2018-01-27] MEDS: IPRATROPIUM/ALBUTEROL SULFATE 3 ML SOLUTION IH SCH ×4 (07:05→23:51)
[2018-01-27] MEDS ORDERED: LANSOPRAZOLE 15 MG SOLU TAB PEG SCH (09:00)
[2018-01-27] MEDS: LOSARTAN 100 MG TABLET PO SCH (10:02)
[2018-01-27] MEDS: LABETALOL HCL 200 MG TABLET PO SCH (10:02)
[2018-01-27] MEDS: ZOSYN 3.375GM+NS 50ML 50 ML IV SCH ×2 (10:02→21:39)
[2018-01-27] MEDS: ASPIRIN 81 MG EC TAB PO SCH (10:02)
[2018-01-27] MEDS: PANTOPRAZOLE SODIUM 40 MG TABLET.DR PO SCH (10:02)
[2018-01-27] MEDS: ENOXAPARIN SODIUM 40 MG/0.4 ML SYRINGE SQ SCH (10:03)
[2018-01-27] MEDS: SAW PALMETTO FRUIT 450 MG PO SCH (10:04)
[2018-01-27] MEDS ORDERED: PHARMACY COMMUNICATION MISC SCH (11:15)
[2018-01-27] MEDS ORDERED: MICAFUNGIN 100MG+NS 100ML 100 ML IV SCH (12:00)
[2018-01-27] MEDS: LEVOFLOXACIN 500 MG/D5W 100 ML 100 ML IV SCH (13:26)
[2018-01-27] MEDS ORDERED: ITRACONAZOLE 10 MG/ML PO SCH (17:15)
[2018-01-27] MEDS: VANCOMYCIN 1.25 GM in SODIUM CHLORIDE 0.9% 250 ML IV SCH (17:40)
[2018-01-27] MEDS: ATORVASTATIN CALCIUM 20 MG TABLET PO SCH (21:39)
[2018-01-27] MEDS: EZETIMIBE 10 MG TAB PO SCH (21:39)
[2018-01-27] MEDS: ACETAMINOPHEN 325 MG TAB PO PRN (21:41)
[2018-01-28 04:00] VITALS: BP 170/80
[2018-01-28] MEDS: VANCOMYCIN 1.25 GM in SODIUM CHLORIDE 0.9% 250 ML IV SCH (05:20)
[2018-01-28 05:32] LABS: HEMATOCRIT 31.1 % (42-54); MEAN CORPUSCULAR HEMOGLOBIN 27.6 pg (27.0-33.0); MEAN CORPUSCULAR VOLUME 81.3 fL (79-99); PLATELET COUNT (AUTO) 473 K/uL (130-400); RED BLOOD CELL COUNT(AUTO) 3.83 MIL/uL (4.50-6.20); RED CELL DISTRIBUTION WIDTH 14.8 % (11.0-15.5); WHITE BLOOD COUNT (AUTO) 12.8 K/uL (4.8-10.8)
[2018-01-28 05:38] LABS: CREATININE 1.1 mg/dL (0.5-1.5); POTASSIUM 3.3 mmol/L (3.5-5.1)
[2018-01-28] MEDS: IPRATROPIUM/ALBUTEROL SULFATE 3 ML SOLUTION IH SCH ×3 (07:06→18:44)
[2018-01-28 08:00] VITALS: BP 145/74
[2018-01-28] MEDS: LABETALOL HCL 200 MG TABLET PO SCH (09:57)
[2018-01-28] MEDS: LOSARTAN 100 MG TABLET PO SCH (09:57)
[2018-01-28] MEDS: ASPIRIN 81 MG EC TAB PO SCH (09:57)
[2018-01-28] MEDS: ZOSYN 3.375GM+NS 50ML 50 ML IV SCH (09:57)
[2018-01-28] MEDS: PANTOPRAZOLE SODIUM 40 MG TABLET.DR PO SCH (09:57)
[2018-01-28] MEDS: SAW PALMETTO FRUIT 450 MG PO SCH (09:58)
[2018-01-28] MEDS: ENOXAPARIN SODIUM 40 MG/0.4 ML SYRINGE SQ SCH (09:58)
[2018-01-28] MEDS: ACETAMINOPHEN 325 MG TAB PO PRN ×2 (10:03→17:04)
[2018-01-28 11:42] VITALS: BP 150/78
[2018-01-28 16:00] VITALS: BP 144/77
[2018-01-28] MEDS: LEVOFLOXACIN 500 MG/D5W 100 ML 100 ML IV SCH (17:03)
[2018-01-28] MEDS ORDERED: ITRA10SO PO (18:29)
[2018-01-28 20:00] VITALS: BP 159/75
[2018-01-28] MEDS: EZETIMIBE 10 MG TAB PO SCH (20:01)
[2018-01-28] MEDS: ATORVASTATIN CALCIUM 20 MG TABLET PO SCH (20:01)
== END 2018-01-28 20:30 | disposition home or self-care (01) | DRG 853 ==
LOC: EDH 11:15 → OBSVTOIN 14:30 → EDHIP 14:30 → 3AH 15:53 → 3DH 01-20 02:11
PROVIDERS: ADMIT Internal Medicine Critical Care Medicine; ATTEND Internal Medicine Critical Care Medicine
PROC: 0B9J8ZX Drainage of Left Lower Lung Lobe, Via Natural or Artificial Opening Endoscopic, Diagnostic (ICD-10-PCS; principal; 2018-01-15)
PROC: 0BBL8ZX Excision of Left Lung, Via Natural or Artificial Opening Endoscopic, Diagnostic (ICD-10-PCS; 2018-01-21)
DX: A41.9 Sepsis, unspecified organism (principal); J18.9 Pneumonia, unspecified organism; R04.2 Hemoptysis; J44.0 Chronic obstructive pulmonary disease with (acute) lower respiratory infection; I10 Essential (primary) hypertension; I73.9 Peripheral vascular disease, unspecified; N18.9 Chronic kidney disease, unspecified; I12.9 Hypertensive chronic kidney disease with stage 1 through stage 4 chronic kidney disease, or unspecified chronic kidney disease; J84.10 Pulmonary fibrosis, unspecified; F17.210 Nicotine dependence, cigarettes, uncomplicated; B39.9 Histoplasmosis, unspecified; R53.81 Other malaise; E16.2 Hypoglycemia, unspecified; Z74.01 Bed confinement status
CPT/HCPCS: 32555; 36415; 36600; 71045; 71250; 71260; 76000; 77012; 78582; 80048; 80053; 80202; 80339; 82550; 82553; 82803; 83735; 83874; 83880; 84100; 84484; 85025; 85027; 85610; 85651; 85730; 86140; 86606; 86612; 86635; 86698; 87071; 87116; 87205; 87206; 87385; 88104; 88108; 88305; 88312; 89051; 93005; 94640; 94664; 94667; 94668; A9540; A9558; C1894; J0171; J1650; J1956; J2175; J2248; J2250; J2543; J3370; J3475; J3490; J7030; J7040; Q9967

== ENCOUNTER 2018-04-20 11:07 | Inpatient (IN) | payer OTHER ==
[~2018-04-20] VITALS: Ht 165.1 cm; Wt 67.0 kg
[~2018-04-20 11:07] MED LIST: AEC81 PO; EZET10TA26 PO; HYDR12.54 PO; IRBE300T19 PO; ITRA10SO PO; LABE200T5 PO; SAW450CA7 PO
[2018-04-20] MEDS ORDERED: SODIUM CHLORIDE 0.9% 1000ML 1,000 ML IV ONE ×2 (11:26→12:56)
[2018-04-20] MEDS ORDERED: CEFTRIAXONE SODIUM 1 GM ONE (11:26)
[2018-04-20 11:32] LABS: BASOPHILS % (AUTO) 0.2 % (0.0-5.0); EOSINOPHILS % (AUTO) 0.4 % (0.0-8.0); HEMATOCRIT 33.5 % (42-54); MEAN CORPUSCULAR HEMOGLOBIN 27.1 pg (27.0-33.0); MEAN CORPUSCULAR HGB CONC 31.9 g/dL (32.0-36.0); MEAN CORPUSCULAR VOLUME 85.1 fL (79-99); MONOCYTES % (AUTO) 3.1 % (3.0-13.0); NEUTROPHILS % (AUTO) 81.3 % (40.0-77.0); PLATELET COUNT (AUTO) 161 K/uL (130-400); RED BLOOD CELL COUNT(AUTO) 3.94 MIL/uL (4.50-6.20); RED CELL DISTRIBUTION WIDTH 18.3 % (11.0-15.5); WHITE BLOOD COUNT (AUTO) 20.1 K/uL (4.8-10.8)
[2018-04-20 11:35] LABS: CARBON DIOXIDE 29 mmol/L (21-32); CHLORIDE 100 mmol/L (101-111); CREATININE 1.5 mg/dL (0.5-1.5); GLOMERULAR FILTR. RATE CALC 48 mL/min (>60); GLUCOSE,RANDOM 192 mg/dL (70-105); SODIUM SERUM 136 mmol/L (136-145); UREA NITROGEN, BLOOD 28 mg/dL (7-18)
[2018-04-20 11:49] LABS: INR 1.02 (0.85-1.15); PARTIAL THROMBOPLASTIN TIME 26.9 SEC (26.3-35.5); PROTHROMBIN TIME 10.7 SEC (9.6-11.6)
[2018-04-20 11:50] LABS: ALANINE AMINOTRANSFERASE 34 U/L (12-78); ALBUMIN 2.1 g/dL (3.5-5.0); ASPARTATE AMINOTRANSFERASE 22 U/L (10-37); BILIRUBIN,TOTAL 0.9 mg/dL (0.2-1.0); CREATINE KINASE MB < 0.5 ng/mL (0.5-3.6); MYOGLOBIN 61 ng/mL (10-92); TOTAL PROTEIN, SERUM 6.2 g/dL (6.0-8.3); TROPONIN I < 0.04 ng/mL (0.00-0.06)
[2018-04-20 12:00] LABS: CREATINE KINASE, TOTAL < 7 U/L (21-232)
[2018-04-20 12:15] LABS: APPEARANCE,URINE SL CLOUDY (CLEAR); BILIRUBIN,URINE NEGATIVE (NEGATIVE); COLOR,URINE YELLOW (YELLOW); GLUCOSE, URINE (UA) NEGATIVE (NEGATIVE); KETONES,URINE NEGATIVE (NEGATIVE); LEUKOCYTE ESTERASE ,URINE NEGATIVE (NEGATIVE); NITRATE,URINE NEGATIVE (NEGATIVE); OCCULT BLOOD,URINE NEGATIVE (NEGATIVE); PROTEIN,URINE 30 (NEGATIVE)
[2018-04-20 12:44] LABS: BACTERIA,URINE Few /HPF (None Seen); RBC,URINE 0-1 /HPF (0-1)
[2018-04-20 12:45] LABS: RENAL EPITHELIAL CELLS,URINE Few /HPF (None Seen)
[2018-04-20] MEDS ORDERED: METHYLPREDNISOLONE SOD SUCC 40MG/ML 1ML ONE (14:31)
[2018-04-20] MEDS ORDERED: POTASSIUM CHLORIDE 20 MEQ ERTAB PO ONE (14:48)
[2018-04-20] MEDS ORDERED: DIPHENOXYLATE HCL/ATROPINE 2.5/0.025 MG TAB PO PRN (16:15)
[2018-04-20 16:25] VITALS: BP 147/73
[2018-04-20] MEDS: SODIUM CHLORIDE 0.9% 1000ML 1,000 ML IV SCH (17:29)
[2018-04-20] MEDS ORDERED: MULT-1203 PO (17:59)
[2018-04-20] MEDS ORDERED: FLUT1DIS4 IH (17:59)
[2018-04-20] MEDS ORDERED: PRED5TAB PO (17:59)
[2018-04-20] MEDS ORDERED: LABE100T5 PO (17:59)
[2018-04-20] MEDS ORDERED: HYDR-4377 PO (17:59)
[2018-04-20] MEDS ORDERED: CYAN-35 PO (17:59)
[2018-04-20 19:00] VITALS: BP 168/91
[2018-04-20] MEDS: METHYLPREDNISOLONE SOD SUCC 125MG/2ML VIAL IVP SCH (20:57)
[2018-04-20 23:00] VITALS: BP 142/72
[2018-04-21] MEDS: METHYLPREDNISOLONE SOD SUCC 125MG/2ML VIAL IVP SCH ×4 (02:16→20:32)
[2018-04-21] MEDS: SODIUM CHLORIDE 0.9% 1000ML 1,000 ML IV SCH ×2 (02:17→12:28)
[2018-04-21 03:00] VITALS: BP 152/76
[2018-04-21 04:41] LABS: HEMATOCRIT 30.9 % (42-54); MEAN CORPUSCULAR VOLUME 85.2 fL (79-99); PLATELET COUNT (AUTO) 160 K/uL (130-400); RED BLOOD CELL COUNT(AUTO) 3.63 MIL/uL (4.50-6.20); RED CELL DISTRIBUTION WIDTH 18.4 % (11.0-15.5); WHITE BLOOD COUNT (AUTO) 9.7 K/uL (4.8-10.8)
[2018-04-21 05:02] LABS: BILIRUBIN,TOTAL 0.3 mg/dL (0.2-1.0); CREATININE 1.1 mg/dL (0.5-1.5); POTASSIUM 3.7 mmol/L (3.5-5.1); TOTAL PROTEIN, SERUM 6.2 g/dL (6.0-8.3)
[2018-04-21 07:30] VITALS: BP 155/95
[2018-04-21] MEDS ORDERED: BRIM5DRO OP (08:52)
[2018-04-21] MEDS ORDERED: LATA7.5D OP (08:52)
[2018-04-21 11:00] VITALS: BP 171/90
[2018-04-21] MEDS ORDERED: HYDROCODONE PO PRN (11:45)
[2018-04-21] MEDS ORDERED: [UNRECOGNIZED DRUG - OTHER] PO PRN (11:45)
[2018-04-21] MEDS ORDERED: ACETAMINOPHEN PO PRN (11:45)
[2018-04-21] MEDS: HYDROCODONE/ACETAMINOPHEN 7.5/325 MG TAB PO PRN ×3 (12:26→22:27)
[2018-04-21] MEDS: BRIMONIDINE TARTRATE 0.2% 5 ML BOTTLE OP SCH ×2 (12:28→20:39)
[2018-04-21] MEDS: TIMOLOL MALEATE 0.5% 5 ML BOTTLE OP SCH ×2 (12:29→20:33)
[2018-04-21 16:00] VITALS: BP 166/86
[2018-04-21] MEDS ORDERED: ALBUTEROL SULFATE 0.083% 2.5 MG/3 ML INH IH SCH (18:00)
[2018-04-21] MEDS ORDERED: BUDESONIDE 0.5 MG/2 ML INH IH SCH (18:00)
[2018-04-21] MEDS: IPRATROPIUM/ALBUTEROL SULFATE 3 ML SOLUTION IH PRN (18:44)
[2018-04-21 19:55] VITALS: BP 190/99
[2018-04-21] MEDS: LATANOPROST 2.5 ML DROPS OU SCH (20:47)
[2018-04-21] MEDS ORDERED: CLONIDINE HCL 0.1 MG TABLET PO ONE (20:55)
[2018-04-21] MEDS ORDERED: LABETALOL HCL 100 MG TABLET PO SCH (21:00)
[2018-04-21] MEDS ORDERED: FLUTICASONE/SALMETEROL 100MCG-50MCG/DISKUS IH SCH (21:00)
[2018-04-21] MEDS ORDERED: HYDRALAZINE HCL 20 MG/ML VIAL IM PRN (22:15)
[2018-04-21 23:52] VITALS: BP 153/89
[2018-04-22] MEDS: IPRATROPIUM/ALBUTEROL SULFATE 3 ML SOLUTION IH PRN ×3 (00:57→12:00)
[2018-04-22] MEDS: METHYLPREDNISOLONE SOD SUCC 125MG/2ML VIAL IVP SCH ×2 (02:13→07:59)
[2018-04-22 04:00] VITALS: BP 163/92
[2018-04-22 05:12] LABS: HEMATOCRIT 29.4 % (42-54); LYMPHOCYTES % (AUTO) 8.2 % (21.0-51.0); MEAN CORPUSCULAR HEMOGLOBIN 27.7 pg (27.0-33.0); MEAN CORPUSCULAR HGB CONC 32.7 g/dL (32.0-36.0); MEAN CORPUSCULAR VOLUME 84.5 fL (79-99); MONOCYTES % (AUTO) 1.5 % (3.0-13.0); NEUTROPHILS % (AUTO) 90.3 % (40.0-77.0); PLATELET COUNT (AUTO) 142 K/uL (130-400); RED BLOOD CELL COUNT(AUTO) 3.48 MIL/uL (4.50-6.20); RED CELL DISTRIBUTION WIDTH 17.8 % (11.0-15.5)
[2018-04-22 05:29] LABS: BILIRUBIN,TOTAL 0.2 mg/dL (0.2-1.0); MAGNESIUM 1.4 mg/dL (1.80-2.40); PHOSPHORUS 2.8 mg/dL (2.5-4.9); POTASSIUM 3.1 mmol/L (3.5-5.1); TOTAL PROTEIN, SERUM 6.1 g/dL (6.0-8.3)
[2018-04-22 08:24] LABS: ABG BASE EXCESS 0.8 mmol/L (-2.0-3.0); ABG HCO3 24.3 mmol/L (21.0-28.0); ABG OXYGEN SATURATION 98.6 % (95.0-99.0); ABG PCO2 36 mmHg (35-48)
[2018-04-22] MEDS: BRIMONIDINE TARTRATE 0.2% 5 ML BOTTLE OP SCH ×2 (09:00→20:25)
[2018-04-22] MEDS ORDERED: LOSARTAN 100 MG TABLET PO SCH (09:00)
[2018-04-22] MEDS: SAW PALMETTO PO SCH (09:00)
[2018-04-22] MEDS: ASPIRIN 81 MG EC TAB PO SCH (09:18)
[2018-04-22] MEDS: CYANOCOBALAMIN (VITAMIN B-12) 1,000 MCG TABLET PO SCH (09:18)
[2018-04-22] MEDS: VITAMIN B COMPLEX 1 CAPSULE PO SCH (09:18)
[2018-04-22] MEDS: EZETIMIBE 10 MG TAB PO SCH (09:18)
[2018-04-22] MEDS: TIMOLOL MALEATE 0.5% 5 ML BOTTLE OP SCH ×2 (09:19→20:25)
[2018-04-22 09:38] VITALS: BP 189/89
[2018-04-22] MEDS ORDERED: HYDRALAZINE HCL 20 MG/ML VIAL IV PRN (11:30)
[2018-04-22] MEDS: HYDROCODONE/ACETAMINOPHEN 7.5/325 MG TAB PO PRN ×2 (11:58→21:30)
[2018-04-22] MEDS: LOSARTAN 50 MG TABLET PO SCH (11:58)
[2018-04-22 13:04] VITALS: BP 148/81
[2018-04-22] MEDS: METHYLPREDNISOLONE SOD SUCC 40MG/ML 1ML IVP SCH ×2 (13:42→20:20)
[2018-04-22 17:58] VITALS: BP 182/96
[2018-04-22 19:00] VITALS: BP 187/98
[2018-04-22] MEDS ORDERED: POTASSIUM CHLORIDE 20MEQ/100ML 100 ML IV PRN (20:00)
[2018-04-22] MEDS ORDERED: POTASSIUM CHLORIDE 20 MEQ ERTAB PO PRN (20:00)
[2018-04-22] MEDS ORDERED: LIDOCAINE HCL-MPF 1% 2ML VIAL IVP PRN (20:00)
[2018-04-22] MEDS ORDERED: LABETALOL 20 MG/4 ML DISP.SYRIN IV PRN (20:30)
[2018-04-22] MEDS: LABETALOL HCL 100 MG TABLET PO SCH (21:27)
[2018-04-22] MEDS: LATANOPROST 2.5 ML DROPS OU SCH (22:00)
[2018-04-22] MEDS: POTASSIUM CHLORIDE 10% ELIXIR 20 MEQ/15 ML UDCUP PO PRN (22:39)
[2018-04-23] VITALS: BP 167/84
[2018-04-23] MEDS: IPRATROPIUM/ALBUTEROL SULFATE 3 ML SOLUTION IH PRN ×3 (01:27→11:02)
[2018-04-23] MEDS: HYDROCODONE/ACETAMINOPHEN 7.5/325 MG TAB PO PRN ×2 (01:30→10:01)
[2018-04-23] MEDS: POTASSIUM CHLORIDE 10% ELIXIR 20 MEQ/15 ML UDCUP PO PRN ×2 (01:31→03:02)
[2018-04-23] MEDS: METHYLPREDNISOLONE SOD SUCC 40MG/ML 1ML IVP SCH ×2 (01:59→10:03)
[2018-04-23 04:00] VITALS: BP 113/73
[2018-04-23 04:27] LABS: HEMATOCRIT 32.6 % (42-54); LYMPHOCYTES % (AUTO) 7.6 % (21.0-51.0); MEAN CORPUSCULAR HEMOGLOBIN 27.9 pg (27.0-33.0); MEAN CORPUSCULAR HGB CONC 33.1 g/dL (32.0-36.0); MEAN CORPUSCULAR VOLUME 84.3 fL (79-99); NEUTROPHILS % (AUTO) 90.4 % (40.0-77.0); PLATELET COUNT (AUTO) 141 K/uL (130-400); RED BLOOD CELL COUNT(AUTO) 3.87 MIL/uL (4.50-6.20); RED CELL DISTRIBUTION WIDTH 18.1 % (11.0-15.5); WHITE BLOOD COUNT (AUTO) 9.7 K/uL (4.8-10.8)
[2018-04-23 04:50] LABS: CREATININE 1.1 mg/dL (0.5-1.5); MAGNESIUM 1.5 mg/dL (1.80-2.40); PHOSPHORUS 2.5 mg/dL (2.5-4.9); POTASSIUM 3.7 mmol/L (3.5-5.1)
[2018-04-23 05:08] VITALS: BP 180/90
[2018-04-23 06:29] VITALS: BP 172/84
[2018-04-23 07:44] LABS: ABG BASE EXCESS 1.8 mmol/L (-2.0-3.0); ABG HCO3 25.5 mmol/L (21.0-28.0); ABG OXYGEN SATURATION 94.3 % (95.0-99.0); ABG PCO2 37 mmHg (35-48)
[2018-04-23 08:00] VITALS: BP 181/97
[2018-04-23] MEDS: SAW PALMETTO PO SCH (09:00)
[2018-04-23] MEDS: VITAMIN B COMPLEX 1 CAPSULE PO SCH (10:01)
[2018-04-23] MEDS: EZETIMIBE 10 MG TAB PO SCH (10:02)
[2018-04-23] MEDS: LOSARTAN 50 MG TABLET PO SCH (10:02)
[2018-04-23] MEDS: LABETALOL HCL 100 MG TABLET PO SCH (10:02)
[2018-04-23] MEDS: CYANOCOBALAMIN (VITAMIN B-12) 1,000 MCG TABLET PO SCH (10:02)
[2018-04-23] MEDS: ASPIRIN 81 MG EC TAB PO SCH (10:02)
[2018-04-23] MEDS: BRIMONIDINE TARTRATE 0.2% 5 ML BOTTLE OP SCH (10:07)
[2018-04-23] MEDS: TIMOLOL MALEATE 0.5% 5 ML BOTTLE OP SCH (10:07)
[2018-04-23 11:54] VITALS: BP 160/99
[2018-04-24] MEDS ORDERED: LOSARTAN 50 MG TABLET PO SCH (09:00)
[2018-04-24] MEDS ORDERED: PREDNISONE 5 MG TABLET PO SCH (09:00)
== END 2018-04-23 16:41 | disposition home health service (06) | DRG 314 ==
LOC: EDH 11:07 → EDHIP 12:55 → 3BH 14:38
PROVIDERS: ADMIT Internal Medicine Hematology & Oncology; ATTEND Internal Medicine Hematology & Oncology
DX: I95.9 Hypotension, unspecified (principal); J96.21 Acute and chronic respiratory failure with hypoxia; C34.90 Malignant neoplasm of unspecified part of unspecified bronchus or lung; J98.11 Atelectasis; E86.9 Volume depletion, unspecified; E86.1 Hypovolemia; B39.9 Histoplasmosis, unspecified; I73.9 Peripheral vascular disease, unspecified; I10 Essential (primary) hypertension; J44.9 Chronic obstructive pulmonary disease, unspecified; I25.10 Atherosclerotic heart disease of native coronary artery without angina pectoris; E78.5 Hyperlipidemia, unspecified; Z87.01 Personal history of pneumonia (recurrent); Z99.81 Dependence on supplemental oxygen; Z87.891 Personal history of nicotine dependence; Z51.11 Encounter for antineoplastic chemotherapy
CPT/HCPCS: 36415; 36600; 71045; 71250; 80048; 80053; 81001; 82270; 82533; 82550; 82553; 82803; 83605; 83735; 83874; 84100; 84484; 85025; 85027; 85610; 85730; 87040; 87046; 87088; 87205; 93005; 94640; 94664; 99291; J0696; J2920; J2930; J7030